=== PATIENT | male | born 1940 | race Caucasian/White ===

== ENCOUNTER 2022-08-20 16:04 | Inpatient (IN) | payer MEDICARE ==
[~2022-08-20] VITALS: Ht 188 cm; Wt 72.0 kg
[2022-08-20] MEDS ORDERED: normal saline 1000ML IV soln IV ONE ×2 (17:00→21:00)
[2022-08-20 17:38] LABS: CLARITY,URINE SLIGHTLY CLOUDY (Clear); COLOR,URINE YELLOW (Yellow); GLUCOSE, URINE 500 mg/dl (Neg); KETONES,URINE NEGATIVE (Neg); LEUKOCYTE ESTERASE ,URINE NEGATIVE (Neg); NITRITES, URINE NEGATIVE (Neg); OCCULT BLOOD,URINE NEGATIVE (Neg); PH,URINE 6.5 (4.8-8.0); PROTEIN,URINE NEGATIVE (Neg); UROBILINOGEN,URINE 0.2 E.U/dL (0.2-1.0)
[2022-08-20 17:44] LABS: BASOPHILS # (AUTO) 0.2 X10'3 (0-0.2); EOSINOPHILS # (AUTO) 0.3 X10'3 (0-0.9); EOSINOPHILS % (AUTO) 1.6 % (0-6); HEMATOCRIT 24.5 % (42.0-52.0); HEMOGLOBIN 7.8 g/dl (14.0-17.9); LYMPHOCYTES % (AUTO) 6.2 % (21-51); MEAN CORPUSCULAR HEMOGLOBIN 31.5 PG (27.0-31.0); MEAN CORPUSCULAR HGB CONC 31.7 g/dL (33.0-36.5); MEAN CORPUSCULAR VOLUME 99.5 FL (78-98); MEAN PLATELET VOLUME 9.7 FL (7.4-10.4); MONOCYTES # (AUTO) 2.1 X10'3 (0-0.9); MONOCYTES % (AUTO) 12.6 % (2-12); NEUTROPHILS # (AUTO) 13.1 X10'3 (1.8-7.7); NEUTROPHILS % (AUTO) 78.6 % (42-75); PLATELET COUNT 353 X10'3 (140-440); RED BLOOD COUNT 2.46 X10'6 (4.70-6.10); RED CELL DISTRIBUTION WIDTH 17.6 % (11.5-14.5); WHITE BLOOD COUNT 16.6 X10'3 (4.5-11.0)
[2022-08-20 18:04] LABS: UA COLLECTION TYPE FOLEY CATH
[2022-08-20 18:05] LABS: ALANINE AMINOTRANSFERASE 66 U/L (12-78); ALBUMIN 2.6 G/DL (3.4-5.0); ALBUMIN/GLOBULIN RATIO 0.7 (1.1-1.5); ALKALINE PHOSPHATASE 88 IU/L (46-116); ANION GAP 7 (8-16); ASPARTATE AMINO TRANSFERASE 62 U/L (10-37); BILIRUBIN,TOTAL 0.4 MG/DL (0.1-1.0); BLOOD UREA NITROGEN 20 MG/DL (7-18); BUN/CREATININE RATIO 21.3 (10.0-20.0); CALCIUM 8.3 MG/DL (8.5-10.1); CHLORIDE 94 MMOL/L (99-107); CREATININE 0.94 MG/DL (0.60-1.10); GLUCOSE 99 MG/DL (70-104); MAGNESIUM 1.9 MG/DL (1.5-2.4); POTASSIUM 4.7 MMOL/L (3.5-5.1); SODIUM 127 MMOL/L (135-145); TOTAL PROTEIN 6.3 G/DL (6.4-8.2); eGFR 77 ML/MIN
[2022-08-20 18:06] LABS: BACTERIA,URINE 2+ /HPF (Neg); RBC,URINE NONE SEEN /HPF (0-2); SQUAMOUS EPITHELIAL CELL,UR NONE SEEN /LPF (FEW); WBC CLUMPS,URINE FEW /HPF (NEGATIVE)
[2022-08-20 18:07] LABS: CELLULAR CAST 0-4 /LPF (NEGATIVE)
[2022-08-20] MEDS ORDERED: iohexol 300mg/ml 100ml inj. ONE (19:07)
[2022-08-20 19:21] LABS: ANISOCYTOSIS 1+; PLATELET ESTIMATE NORMAL; POLYCHROMASIA FEW; TOTAL CELLS COUNTED 100
[2022-08-20 19:22] LABS: BURR CELLS FEW; LARGE PLATELETS FEW; TARGET CELLS FEW
[2022-08-20 19:25] LABS: HYPERSEGMENTED NEUTROPHILS FEW; SMUDGE CELLS FEW
--- NOTE | 2022-08-20 20:00 | NUR ---
Witnessed series of jeff Veliz MD to bedside, stated he would put in orders.
[2022-08-20] MEDS ORDERED: levetiracetam inj 1,000 MG in normal saline 100ml IV soln 90 ML IV STA (20:01)
[2022-08-20] MEDS ORDERED: levetiracetam inj 1,000 MG in normal saline 100ml IV soln 100 ML IV STA (20:04)
[2022-08-20] MEDS ORDERED: LORazepam 2 mg/ml vial IV ONE ×3 (20:05→21:50)
--- NOTE | 2022-08-20 20:30 | NUR ---
CHANGED HIS DRESSINGS AND CLEANSED THE WOUNDS.
[2022-08-20] MEDS ORDERED: vancomycin/NS 1 GM ADD-VANTAGE 250 ML IV ONE (20:40)
[2022-08-20] MEDS ORDERED: piperacillin/tazo 3.375gm/50ml 50 ML IV ONE (20:40)
--- NOTE | 2022-08-20 21:10 | NUR ---
MD AWARE OF WORSENING HYPOTENSION.
--- NOTE | 2022-08-20 21:50 | NUR ---
Patient began having another series of seizures once arrived to CT. Reinaldo ROJAS arrived to CT with Avani.
--- NOTE | 2022-08-20 22:20 | NUR ---
Return to ER from CT
[2022-08-20] MEDS ORDERED: NORepinephrine 8mg/ 250ml NS 250 ML IV PRN (22:35)
--- NOTE | 2022-08-20 22:52 | NUR ---
Patient resting comfortably in bed. No signs of distress.
[2022-08-20] MEDS ORDERED: LIDOcaine 2% 10ml TOPICAL JELLY (Urojet) TP ONE (23:25)
[2022-08-20] MEDS ORDERED: acetaminophen 325mg tablet PO PRN (23:25)
[2022-08-20] MEDS ORDERED: ondansetron/PF 4mg/2ml inj IV PRN (23:25)
[2022-08-20] MEDS ORDERED: magnesium hydroxide 30ml (MOM) UD suspension PO PRN (23:25)
[2022-08-20] MEDS ORDERED: LidoCAINE 2% Topical Jelly 11mL syringe TOP ONE (23:45)
[2022-08-20] MEDS ORDERED: VANCOMYCIN 750MG IV in NS 250 ML IV ONE (23:50)
[2022-08-21] VITALS (22 sets, daily range): BP systolic 98–144; BP diastolic 49–72
[2022-08-21] MEDS ORDERED: piperacillin/tazo 3.375gm/50ml 50 ML IV SCH ×2
--- NOTE | 2022-08-21 00:50 | NUR ---
0030 Patient going into room ICU 2039. I have received report from Oxana LOPEZ Via telephone and had the opportunity to ask questions in order to assume patient care.
[2022-08-21 03:04] LABS: BASOPHILS # (AUTO) 0.2 X10'3 (0-0.2); BASOPHILS % (AUTO) 1.5 % (0-1); EOSINOPHILS # (AUTO) 0.2 X10'3 (0-0.9); EOSINOPHILS % (AUTO) 1.9 % (0-6); HEMATOCRIT 22.7 % (42.0-52.0); HEMOGLOBIN 7.4 g/dl (14.0-17.9); LYMPHOCYTES % (AUTO) 7.4 % (21-51); MEAN CORPUSCULAR HEMOGLOBIN 32.1 PG (27.0-31.0); MEAN CORPUSCULAR HGB CONC 32.7 g/dL (33.0-36.5); MEAN CORPUSCULAR VOLUME 98.2 FL (78-98); MEAN PLATELET VOLUME 9.9 FL (7.4-10.4); MONOCYTES # (AUTO) 1.5 X10'3 (0-0.9); MONOCYTES % (AUTO) 11.8 % (2-12); NEUTROPHILS % (AUTO) 77.4 % (42-75); PLATELET COUNT 366 X10'3 (140-440); RED BLOOD COUNT 2.31 X10'6 (4.70-6.10); RED CELL DISTRIBUTION WIDTH 17.4 % (11.5-14.5); WHITE BLOOD COUNT 12.9 X10'3 (4.5-11.0)
[2022-08-21 03:20] LABS: ALANINE AMINOTRANSFERASE 57 U/L (12-78); ALBUMIN 2.4 G/DL (3.4-5.0); ALBUMIN/GLOBULIN RATIO 0.7 (1.1-1.5); ALKALINE PHOSPHATASE 80 IU/L (46-116); ANION GAP 5 (8-16); ASPARTATE AMINO TRANSFERASE 44 U/L (10-37); BILIRUBIN,TOTAL 0.4 MG/DL (0.1-1.0); BLOOD UREA NITROGEN 17 MG/DL (7-18); BUN/CREATININE RATIO 20.7 (10.0-20.0); CALCIUM 8.1 MG/DL (8.5-10.1); CHLORIDE 101 MMOL/L (99-107); CREATININE 0.82 MG/DL (0.60-1.10); GLUCOSE 112 MG/DL (70-104); POTASSIUM 4.3 MMOL/L (3.5-5.1); SODIUM 132 MMOL/L (135-145); TOTAL CARBON DIOXIDE 25.9 MMOL/L (24-32); TOTAL PROTEIN 5.9 G/DL (6.4-8.2); eGFR > 90 ML/MIN
[2022-08-21] MEDS: piperacillin/tazo 3.375gm/50ml 50 ML IV SCH ×3 (05:37→22:05)
--- NOTE | 2022-08-21 06:19 | NUR ---
Problems reprioritized. Patient report given, questions answered & plan of care reviewed with Spencer LOPEZ.
[2022-08-21] MEDS ORDERED: enoxaparin 30mg/0.3ml syringe SUBCUT SCH (08:00)
[2022-08-21] MEDS: levetiracetam inj 1,000 MG in normal saline 100ml IV soln 100 ML IV SCH ×2 (09:19→19:22)
[2022-08-21] MEDS ORDERED: vancomycin/NS 1 GM ADD-VANTAGE 250 ML IV SCH (10:00)
[2022-08-21] MEDS ORDERED: CARV3.12 PO (11:48)
[2022-08-21] MEDS ORDERED: VALS80TA32 PO (11:48)
[2022-08-21] MEDS ORDERED: FURO-150 PO (11:48)
[2022-08-21] MEDS ORDERED: FURO-150 IV (11:48)
[2022-08-21] MEDS ORDERED: MIDO2.5T14 PO (11:48)
[2022-08-21] MEDS ORDERED: ATOR10TA70 PO (11:48)
[2022-08-21] MEDS ORDERED: SACU1TAB7 PEG (11:48)
[2022-08-21] MEDS ORDERED: MULT-1121 PEG (11:48)
[2022-08-21] MEDS ORDERED: SPIR25TA5 PO (11:48)
[2022-08-21] MEDS ORDERED: EMPA10TA PO (11:48)
[2022-08-21] MEDS ORDERED: CIPR250S4 IV (11:48)
[2022-08-21] MEDS ORDERED: PANT20TA2 IV (11:48)
[2022-08-21] MEDS ORDERED: MELA1LIQ PO (11:48)
[2022-08-21] MEDS ORDERED: SENN8.6T19 PO (11:48)
[2022-08-21] MEDS ORDERED: VANC1VIA38 IV (11:48)
[2022-08-21] MEDS ORDERED: APIX5TAB3 PO (11:48)
[2022-08-21] MEDS ORDERED: enoxaparin 40mg/0.4ml syringe SUBCUT SCH (11:49)
[2022-08-21] MEDS ORDERED: LORA2VIA30 IV (11:59)
[2022-08-21] MEDS ORDERED: OXYC-658 PO (11:59)
[2022-08-21] MEDS: pantoprazole 40MG/NS 100ML BAG 100 ML IV SCH (13:36)
[2022-08-21] MEDS: vancomycin/NS 1 GM ADD-VANTAGE 250 ML IV SCH (15:11)
--- NOTE | 2022-08-21 16:15 | NUR ---
TF consult: Per EMR pt admit for concerns of AMS and seizure activity. Pt s/p recent hernia repair surgery. Per RN partial bowel was removed during surgery. Pt with a trach and PEG in place though not ventilated per RN. TC to Ronaldo DELGADILLO who states pt had a PEG placed 07/31 and pt was receiving continuous TF using Vital 1.5 at 70 mL/hr with additional 150 mL water flush Q4H. Vital 1.5 not available at [facility], recommend Vital AF at 75 mL/hr to meet patient's estimated nutrient needs and no water flushes given hyponatremia on admit. No documented BM since admit though pt with PRN bowel care available. Will continue to follow closely and make recommendations as appropriate. Recommendations: 1) Continuous Vital AF with 75 mL/hr goal rate to provide 1800 mL total volume/day, 2160 kcal, 135 g protein, and 1460 mL water 2) No additional water flushes in view of hyponatremia; monitor serum Na 3) Prealbumin q Thursday/ 4) Daily scaled weights 5) Routine bowel care Addendum: 08/21/22 at [address] Amended: Links added.
--- NOTE | 2022-08-21 18:36 | NUR ---
RN sat pt up higher in bed about an hour ago, Came to hook pt up to tube feed and noticed blood onbed, gown and pillows. Blood was coming out the bottom of the incision site of the Gtube. Dr. Martinez informed. Pt cleaned up and dressing applied to gtube site.. Report to Burt souza RN and reported off to Hayley LOPEZ.
[2022-08-21 18:55] LABS: HEMATOCRIT 22.6 % (42.0-52.0); HEMOGLOBIN 7.5 g/dl (14.0-17.9); MEAN CORPUSCULAR HEMOGLOBIN 32.4 PG (27.0-31.0); MEAN CORPUSCULAR HGB CONC 33.1 g/dL (33.0-36.5); MEAN CORPUSCULAR VOLUME 98.1 FL (78-98); MEAN PLATELET VOLUME 9.5 FL (7.4-10.4); PLATELET COUNT 383 X10'3 (140-440); RED CELL DISTRIBUTION WIDTH 17.5 % (11.5-14.5); WHITE BLOOD COUNT 10.1 X10'3 (4.5-11.0)
[2022-08-21] MEDS ORDERED: dextrose 50%-water 50ml dispensing syringe IV ONE (19:27)
[2022-08-22] VITALS (21 sets, daily range): BP systolic 95–120; BP diastolic 44–70
[2022-08-22 02:58] LABS: BASOPHILS # (AUTO) 0.2 X10'3 (0-0.2); BASOPHILS % (AUTO) 1.4 % (0-1); EOSINOPHILS # (AUTO) 0.2 X10'3 (0-0.9); EOSINOPHILS % (AUTO) 1.8 % (0-6); LYMPHOCYTES % (AUTO) 8.2 % (21-51); MEAN CORPUSCULAR HEMOGLOBIN 31.5 PG (27.0-31.0); MEAN CORPUSCULAR HGB CONC 32.1 g/dL (33.0-36.5); MEAN PLATELET VOLUME 9.6 FL (7.4-10.4); MONOCYTES # (AUTO) 1.6 X10'3 (0-0.9); MONOCYTES % (AUTO) 13.4 % (2-12); NEUTROPHILS % (AUTO) 75.2 % (42-75); PLATELET COUNT 381 X10'3 (140-440); RED BLOOD COUNT 2.15 X10'6 (4.70-6.10); RED CELL DISTRIBUTION WIDTH 17.2 % (11.5-14.5); WHITE BLOOD COUNT 11.9 X10'3 (4.5-11.0)
[2022-08-22 03:05] LABS: HEMOGLOBIN 6.8 g/dl (14.0-17.9)
[2022-08-22 03:06] LABS: ALANINE AMINOTRANSFERASE 43 U/L (12-78); ALBUMIN 2.1 G/DL (3.4-5.0); ALBUMIN/GLOBULIN RATIO 0.7 (1.1-1.5); ALKALINE PHOSPHATASE 70 IU/L (46-116); ANION GAP 5 (8-16); ASPARTATE AMINO TRANSFERASE 32 U/L (10-37); BILIRUBIN,TOTAL 0.4 MG/DL (0.1-1.0); BLOOD UREA NITROGEN 19 MG/DL (7-18); BUN/CREATININE RATIO 23.5 (10.0-20.0); CHLORIDE 104 MMOL/L (99-107); CREATININE 0.81 MG/DL (0.60-1.10); GLUCOSE 95 MG/DL (70-104); HEMATOCRIT 21.1 % (42.0-52.0); POTASSIUM 3.8 MMOL/L (3.5-5.1); PREALBUMIN 10.5 MG/DL (19-36); SODIUM 135 MMOL/L (135-145); TOTAL CARBON DIOXIDE 26.1 MMOL/L (24-32); TOTAL PROTEIN 5.3 G/DL (6.4-8.2); eGFR > 90 ML/MIN
[2022-08-22] MEDS: vancomycin/NS 1 GM ADD-VANTAGE 250 ML IV SCH ×2 (03:08→15:00)
[2022-08-22] MEDS ORDERED: acetaminophen 325mg tablet PO ONE (03:15)
[2022-08-22] MEDS ORDERED: diphenhydrAMINE 50 mg/ml inj IV ONE (03:15)
[2022-08-22] MEDS ORDERED: diphenhydrAMINE 25mg capsule PO ONE (03:15)
[2022-08-22] MEDS: piperacillin/tazo 3.375gm/50ml 50 ML IV SCH ×2 (05:18→14:15)
[2022-08-22] MEDS: pantoprazole 40MG/NS 100ML BAG 100 ML IV SCH (08:15)
[2022-08-22] MEDS: levetiracetam inj 1,000 MG in normal saline 100ml IV soln 100 ML IV SCH (08:15)
[2022-08-22] MEDS ORDERED: magnesium hydroxide 30ml (MOM) UD suspension PEG PRN (08:39)
[2022-08-22] MEDS ORDERED: acetaminophen 325mg/10.15ml oral unit dose solution PEG PRN (08:39)
[2022-08-22] MEDS ORDERED: albumin (human) 25% 100ml IV 300 ML IV ONE (10:35)
[2022-08-22] MEDS ORDERED: normal saline 1000ml 1,000 ML IVB ONE (10:40)
[2022-08-22] MEDS ORDERED: normal saline 1000ml 1,000 ML IV ONE (10:45)
[2022-08-22] MEDS ORDERED: VANCOMYCIN LEVEL IV ONE (14:30)
--- NOTE | 2022-08-22 15:56 | NUR ---
Pt being transferred back to [facility]
--- NOTE | 2022-08-22 17:58 | NUR ---
Pt discharged in stable condition with belongings. Discharge meds at [facility] pharmacy X 4. Addendum: 08/22/22 at 1800 by Spencer Rowley RN Pt transferred to [facility]. Retract discharge med message. No new RX written for home
== END 2022-08-22 17:08 | DRG 871 ==
LOC: ER 16:05 → ED HOLD 23:32 → UNDOADMIN 23:32 → ICU 2S 23:55
PROVIDERS: ADMIT Surgery Surgical Critical Care; ATTEND Surgery Surgical Critical Care
PROC: BW251ZZ Computerized Tomography (CT Scan) of Chest, Abdomen and Pelvis using Low Osmolar Contrast (ICD-10-PCS; 2022-08-20)
PROC: 4A00X4Z Measurement of Central Nervous Electrical Activity, External Approach (ICD-10-PCS; 2022-08-21)
PROC: 4A00X4Z Measurement of Central Nervous Electrical Activity, External Approach (ICD-10-PCS; principal; 2022-08-22)
PROC: 30233N1 Transfusion of Nonautologous Red Blood Cells into Peripheral Vein, Percutaneous Approach (ICD-10-PCS; 2022-08-22)
DX: A41.9 Sepsis, unspecified organism (principal); J18.9 Pneumonia, unspecified organism; J96.01 Acute respiratory failure with hypoxia; R65.21 Severe sepsis with septic shock; E87.1 Hypo-osmolality and hyponatremia; G93.40 Encephalopathy, unspecified; N39.0 Urinary tract infection, site not specified; D62 Acute posthemorrhagic anemia; D64.9 Anemia, unspecified; S31.109A Unspecified open wound of abdominal wall, unspecified quadrant without penetration into peritoneal cavity, initial encounter; I48.91 Unspecified atrial fibrillation; I50.9 Heart failure, unspecified; R56.9 Unspecified convulsions; Z88.5 Allergy status to narcotic agent; K94.21 Gastrostomy hemorrhage; Y83.8 Other surgical procedures as the cause of abnormal reaction of the patient, or of later complication, without mention of misadventure at the time of the procedure; Y92.230 Patient room in hospital as the place of occurrence of the external cause
CPT/HCPCS: 36415; 36430; 70450; 71045; 71260; 74176; 80053; 81001; 82948; 83605; 83735; 84134; 84145; 85007; 85025; 85027; 86885; 86900; 86901; 86920; 87040; 87077; 87081; 87088; 87186; 93005; 94640; 94760; 95813; 99291; 99292; A4620; A4624; A6154; A6209; A6222; A6223; A6253; A6258; A6449; A7525; C9113; G0378; J1650; J1953; J2060; J2543; J3370; J3490; J7030; J7040; J7050; P9016; P9047; Q9967